=== PATIENT | male | born 1990 | race Caucasian/White ===

== ENCOUNTER 2022-07-03 21:58 | Emergency (ER) | payer OTHER ==
[2022-07-03] MEDS ORDERED: Lidocaine 1% PF 5 ML VIAL ONE (23:31)
[2022-07-04] MEDS ORDERED: Boostrix 0.5 ML (Tdap) VIAL (>/=7 yrs of age) ONE ×2 (00:21→00:26)
== END 2022-07-04 00:33 | disposition home or self-care (01) ==
LOC: ERS 21:58
DX: S02.2XXA Fracture of nasal bones, initial encounter for closed fracture (principal); S01.21XA Laceration without foreign body of nose, initial encounter; V89.2XXA Person injured in unspecified motor-vehicle accident, traffic, initial encounter; Z23 Encounter for immunization
CPT/HCPCS: 12011; 70450; 72125; 90471; 90715